=== PATIENT | female | born 1950 | race Caucasian/White ===

== ENCOUNTER → 2016-11-13 | Outpatient (CLI) | payer BC ==
[~2016-11-13] MED LIST: ERGO1CAP35 PO; ERGO500037 PO; HYDR-5688 PO; MULT-188 PO; MULTTAB58 PO; OMEG120013 PO; SIMV20TA2 PO
--- NOTE | 2016-11-13 15:00 | MAMMOGRAPHY REPORT ---
BILATERAL DIGITAL SCREENING MAMMOGRAM WITH CAD: 11/13/2016 CLINICAL HISTORY: Routine screening examination. TECHNIQUE: Bilateral CC and MLO views were obtained. Current study was also evaluated with a Comput er Aided Detection (CAD) system. COMPARISON: Comparison is made to exams dated: 11/09/2015 mammogram, 11/06/2014 mammogram, 06/12/2011 mammogram, 10/01/2013 mammogram, 07/24/2012 mammogram, and 06/03/2010 mammogram - [facility]. BREAST COMPOSITION: There are scattered areas of fibroglandular density in both breasts. FINDINGS: There are benign rim calcifications and rodlike secretory calcifications in both breasts. No suspicious mass, architectural distortion or cluster of microcalcifications is seen. IMPRESSION: ACR BI-RADS CATEGORY 2: BENIGN There is no mammographic evidence of malignancy. A 1 year screening mammogram is recommended. The p atient will receive written notification of the results. Approximately 10% of breast cancers are not detected with mammography. A negative mammographic repor t should not delay biopsy if a clinically suggestive mass is present. Carine Burk M.D. ay/:11/13/2016 09:36:08 Title 1 Tutor: Rea MOE(Kassy)(Shar), [facility] letter sent: Normal 1/2 BI-RADS Code: ACR BI-RADS Category 2: Benign
== END | disposition home or self-care (01) ==
LOC: C.MAMM 08:09
PROVIDERS: ATTEND Obstetrics & Gynecology
DX: Z12.31 Encounter for screening mammogram for malignant neoplasm of breast (principal)

== ENCOUNTER 2017-03-25 11:13 | Emergency (ER) | payer BC ==
[~2017-03-25] VITALS: Ht 157.5 cm; Wt 63.0 kg
[~2017-03-25 11:13] MED LIST changes: -ERGO500037 PO; -HYDR-5688 PO
[2017-03-25 11:16] VITALS: TEMP 36.9; Ht 157.5 cm; Wt 63.0 kg
[2017-03-25] MEDS ORDERED: ERGO500037 PO (11:36)
[2017-03-25] MEDS ORDERED: ACETAMINOPHEN 325 MG TAB PO STA (12:06)
--- NOTE | 2017-03-25 12:55 | DIAGNOSTIC IMAGING REPORT ---
LEFT WRIST 5 VIEWS CLINICAL HISTORY: Fall yesterday with left wrist pain. FINDINGS: 5 views of the left wrist are obtained. No prior studies are available for comparison at the time of dictation. The skeletal structures are osteopenic. There is no radiographic evidence of left wrist fracture. The Joint spaces of the wrist appear well-maintained. Soft tissue swelling is present around the wrist. IMPRESSION: Soft tissue swelling with no radiographic evidence of left wrist fracture. If there is strong clinical concern for occult fracture consider short-term radiographic follow-up. Electronically signed by: Francisco Orozco M.D. 03/25/2017 12:54 PM Dictated Date/Time: 03/25/2017 12:52 PM
--- NOTE | 2017-03-25 13:00 | DIAGNOSTIC IMAGING REPORT ---
SINGLE VIEW PELVIS CLINICAL HISTORY: Fall with left pelvic pain. FINDINGS: An AP pelvic radiograph is obtained. No prior studies are available for comparison at the time of dictation. The skeletal structures are osteopenic. There are acute left pubic ring fractures. Only minimal distraction is seen. No additional fracture is seen. The proximal femora appear intact. Mild arthritic change is noted in the hips. Mild sclerosis is seen in the sacroiliac joints and pubic symphysis. There is a nonobstructed abdominal bowel gas pattern. IMPRESSION: 1. Acute left pubic ring fractures. 2. No additional fracture is identified. 3. Osteopenia and degenerative change as above. Electronically signed by: Francisco Orozco M.D. 03/25/2017 12:58 PM Dictated Date/Time: 03/25/2017 12:57 PM
[2017-03-25] MEDS ORDERED: HYDR-5688 PO (13:20)
[2017-03-25 13:54] VITALS: BP 132/85; PULSE 74; O2SAT 95
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
== END 2017-03-25 13:55 | disposition home or self-care (01) ==
LOC: C.EDB 11:15 → C.EDD 13:55
DX: S32.592A Other specified fracture of left pubis, initial encounter for closed fracture (principal); S60.212A Contusion of left wrist, initial encounter; W03.XXXA Other fall on same level due to collision with another person, initial encounter; Y92.251 Museum as the place of occurrence of the external cause; S60.221A Contusion of right hand, initial encounter; S60.511A Abrasion of right hand, initial encounter; S70.12XA Contusion of left thigh, initial encounter; M19.90 Unspecified osteoarthritis, unspecified site; Z90.710 Acquired absence of both cervix and uterus

== ENCOUNTER → 2017-04-12 | Outpatient (CLI) | payer BC ==
[~2017-04-12] MED LIST changes: -ERGO1CAP35 PO; +ERGO500037 PO; +HYDR-5688 PO
== END | disposition home or self-care (01) ==
LOC: C.RDSM 16:15
PROVIDERS: ATTEND Orthopaedic Surgery Sports Medicine
DX: Z09 Encounter for follow-up examination after completed treatment for conditions other than malignant neoplasm (principal)

== ENCOUNTER → 2017-05-17 | Outpatient (CLI) | payer BC | END | disposition home or self-care (01) | LOC: C.RDSM 14:01 | PROVIDERS: ATTEND Orthopaedic Surgery Sports Medicine | DX: S32.599A Other specified fracture of unspecified pubis, initial encounter for closed fracture (principal); X58.XXXA Exposure to other specified factors, initial encounter ==

== ENCOUNTER → 2017-09-10 | Outpatient (CLI) | payer BC | END | disposition home or self-care (01) | LOC: C.MAMM 09:58 | PROVIDERS: ATTEND Internal Medicine | DX: M85.89 Other specified disorders of bone density and structure, multiple sites (principal); M85.851 Other specified disorders of bone density and structure, right thigh; M85.852 Other specified disorders of bone density and structure, left thigh; W19.XXXA Unspecified fall, initial encounter; Z87.81 Personal history of (healed) traumatic fracture ==

== ENCOUNTER → 2017-11-14 | Outpatient (CLI) | payer BC ==
[~2017-11-14] MED LIST changes: -HYDR-5688 PO
--- NOTE | 2017-11-14 15:41 | MAMMOGRAPHY REPORT ---
BILATERAL DIGITAL SCREENING MAMMOGRAM TOMOSYNTHESIS WITH CAD: 11/14/2017 CLINICAL HISTORY: Routine screening. Patient has no complaints. TECHNIQUE: Breast tomosynthesis in addition to standard 2D mammography was performed. Current study was also evaluated with a Computer Aided Detection (CAD) system. COMPARISON: Comparison is made to exams dated: 11/13/2016 mammogram, 11/09/2015 mammogram, 11/06/2014 m ammogram, 10/01/2013 mammogram, 07/24/2012 mammogram, and 06/12/2011 mammogram - [facility]. BREAST COMPOSITION: There are scattered areas of fibroglandular density in both breasts. FINDINGS: No suspicious masses, calcifications, or areas of architectural distortion are noted in ei ther breast. There has been no significant interval change compared to prior exams. Scattered bilater al benign-appearing calcifications are not significantly changed. IMPRESSION: ACR BI-RADS CATEGORY 2: BENIGN There is no mammographic evidence of malignancy. A 1 year screening mammogram is recommended. The pa tient will receive written notification of the results. Approximately 10% of breast cancers are not detected with mammography. A negative mammographic report should not delay biopsy if a clinically suggestive mass is present. Lindsay Hung M.D. /:11/14/2017 09:21:11 Conveyor Operator: Ninfa MESA)(M), [facility] letter sent: Normal 1/2 BI-RADS Code: ACR BI-RADS Category 2: Benign
== END | disposition home or self-care (01) ==
LOC: C.MAMM 08:55
PROVIDERS: ATTEND Obstetrics & Gynecology
DX: Z12.31 Encounter for screening mammogram for malignant neoplasm of breast (principal)

== ENCOUNTER → 2017-12-05 | Outpatient (CLI) | payer BC ==
[2017-12-05 10:12] LABS: ALBUMIN 3.7 gm/dl (3.4-5.0); ALT/SGPT 26 U/L (12-78); BLOOD UREA NITROGEN 18 mg/dl (7-18); CALCIUM 9.1 mg/dl (8.5-10.1); CARBON DIOXIDE 26 mmol/L (21-32); CHOLESTEROL 211 mg/dl (0-200); CREATININE 0.86 mg/dl (0.60-1.20); GLUCOSE 87 mg/dl (70-99); POTASSIUM 3.7 mmol/L (3.5-5.1); SODIUM 137 mmol/L (136-145)
[2017-12-05 10:23] LABS: ALKALINE PHOSPHATASE 99 U/L (45-117); AST/SGOT 21 U/L (15-37); LDL CHOLESTEROL CALCULATED 112 mg/dl; TOTAL PROTEIN 7.2 gm/dl (6.4-8.2)
== END | disposition home or self-care (01) ==
LOC: C.LAB1850 08:59
PROVIDERS: ATTEND Internal Medicine
DX: E78.00 Pure hypercholesterolemia, unspecified (principal); E55.9 Vitamin D deficiency, unspecified

== ENCOUNTER 2022-07-18 10:50 | Observation (INO) ==
--- NOTE | 2022-07-18 11:38 | Emergency Department Note ---
Impression & Plan Substernal chest pain, Exertional chest pain ED Provider Note Name: HUBER MILLER Age: 72 Sex: F Arrives Via: Walk-In Informant: Patient, ED Provider: Corbin Villanueva MD Chief Complaint: Chest pain Impression: As per impressions above Medical Decision Making: Pleasant 72-year-old female with a known history of CAD/calcifications though no previous heart catheterization arrives for evaluation of escalating exertional chest pressure over the last week or so. On arrival with no symptoms. EKG is without ischemia. Labs are unremarkable and initial troponin is normal. Chest x-ray looks good. She has no history nor findings consistent with PE. Symptoms and findings are not consistent with dissection either at this time. She is not septic appearing either. Given her history and the exertional component and especially the escalating symptoms I do feel that this may represent coronary cause. With normal troponin I do not think that starting heparin is indicated at this time. She is agreeable to trying aspirin which she was worried she may be allergic to. She was given 324 mg p.o. aspirin without further issue. Plan will be to bring her in for a full cardiac rule out and hospitalist was consulted for that. Prior Medical Record and Triage/Nursing Notes reviewed by Me Additional history obtained from chart Differentials:Cardiac ischemia, aortic dissection, pulmonary embolism, pneumothorax, pneumonia, pericarditis, myocarditis, esophageal rupture, GERD, cholecystitis, pancreatitis, musculoskeletal, as well as other pathologies. Vital Signs: reviewed and remarkable for no significant abnormalities Interventions: Aspirin 324 mg p.o. Labs:Reviewed and remarkable for normal troponin Imagin view chest x-ray as per radiologist no acute findings EKG:Indication chest pain as per my interpretation. Normal sinus rhythm at 67 bpm and a QTC of 418. There is no ectopy nor ischemia. When compared to EKG of September 23, 2021 there is no acute changes Cardiac/Tele Monitoring: Cardiac Monitoring: An Order was placed for continuous cardiac monitoring. The monitor shows a rate of 67 with a normal sinus rhythm. Consults:Dr Viktor CLOUD Hospitalist Plan: Disposition:Hospitalization Condition: Good History of Present Illness:72-year-old female arrives for evaluation of chest pain. Patient notes that she has no significant history of CAD or previous cardiac issues other than known hypertrophy of the left ventricle. She states that she has been feeling well up until about a week or 2 ago. She notes that on several occasions over the last week she has had significant crushing tightness of her chest and shortness of breath with heavy exertion primarily go ing up hills. With just general walking and general exercise she has no symptoms. She states symptoms resolved after she relaxes for a little while. This morning symptoms lasted about half hour or so during her morning walk up a hill. She took no medications prior to arrival. Rest makes better or exertion makes it worse. She denies any falls, trauma, injuries. She had no palpitation, nausea, vomiting, back pain, abdominal pain or other concerning signs or symptoms. No previous cardiac catheterization. She had an echo previously and was seen by cardiology at that time. Patient states she has no symptoms at this time. ROS: See above HPI for pertinent positives & negatives. A total of 10 systems reviewed and were otherwise negative. Past Medical History:HERNANDEZ, coronary artery calcifications, dyslipidemia, carotid atherosclerosis, left ventricular hypertrophy Past Surgical History:See Below Family History:See below but will note significant family history of CAD in both mother, father, brother. Social History:See Below Home Medications:See Below Allergies:See Below Vitals:Blood Pressure: 153/67, Pulse 68, RR 18, T 36.5C, O2 98% on RA Physical Exam: GENERAL: Patient is well appearing and in no acute distress. EYES: No scleral icterus, unremarkable pupils. ENT: Mucous membranes moist, no nasal congestion. NECK: No masses appreciated, nomeningismus, trachea is midline. RESPIRATORY: No dyspnea. Clear to auscultation and equal bilaterally. No wheeze, no rhonchi. CARDIOVASCULAR: Regular rate and rhythm.No murmurs, rubs, gallops appreciated. GASTROINTESTINAL: Abdomen soft, non-tender, no peritonitis.Bowel sounds positive.No masses appreciated. BACK: No midline tenderness, no CVA tenderness EXTREMITIES: Normal motion all extremities, no cyanosis, no edema. NEUROLOGIC: Alert and oriented, no acute motor or sensory deficits, no focal weakness, cranial nerves grossly intact. SKIN: No rash, no jaundice, no diaphoresis. 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 Left hip pain Left ventricular hypertrophy Osteopenia Prolapse of vaginal park Vaginal pessary present Vitamin D deficiency disease Surgical History H/O hysterectomy for benign disease History of appendectomy History of colonoscopy History of gynecologic surgery posterior colporrhaphy History of pituitary surgery benign tumor removed History of right breast biopsy benign, 2020, chronic inflammation, not radial scar History of wisdom tooth extraction S/P hysterectomy vaginal with USLS S/P tonsillectomy and adenoidectomy Family History Mother Family hx of colon cancer Hypercholesterolemia Colorectal cancer Myocardial infarction Father Throat cancer Family history of esophageal cancer Brother Hx of CABG Myocardial infarction Grandmother (Maternal) Stroke Grandmother (Paternal) Stroke Other Cancer No family history of adverse response to anesthesia Denies family history of Ovarian cancer Prostate cancer Breast cancer Social History Smoking Status: Never smoker Second Hand Exposure: No (parents smoked); Hx Alcohol Use: No Hx Substance Use: No Preferred Language: Hungarian Communication Ability: Effective Visual Impairment: No Limitations Hearing Ability: Normal Clinical Associate Required: No Beliefs That Will Affect Care: None marital status: Current Living Situation: Spouse How many Children do You have: 2 How many Children do You have Comment: 2 live births and 1 miscarriage Feels Safe at Home: Yes Childhood Exposure to Second-Hand Smoke: Yes (both parants) caffeine: No Dental Care, Regularly: Yes Physical Activity Frequency: Daily Physical Activity Frequency Comment: walking Seatbelt Use: always Sunscreen Use: Yes (sometimes) Assistive Devices: Glasses Allergies Allergies Allergy/AdvReac Type Severity Reaction Status Date / Time ibuprofen Allergy Intermediate rash/hives Verified 06/28/22 15:31 Iodinated Contrast Media Allergy Intermediate extreme Verified 06/28/22 15:31 headache/vomiting lasts for days Penicillins Allergy Intermediate swelling Verified 06/28/22 15:31 in face/neck, "sunburn" red HAIR DYE Allergy Mild ITCHINESS Uncoded 06/28/22 15:31 with scalp Home Meds Home Medications Medication Instructions Recorded Confirmed krill 1,000 mg-omega-3 170 mg-dha 1 cap PO QPM 01/02/20 07/18/22 50 mg-epa 80 [id number] capsule (krill oil) lutein 25 mg-zeaxanthin 5 mg 1 cap PO QAM 01/02/20 07/18/22 capsule (Ocuvite Lutein) multivitamin 1 tab PO QAM 01/02/20 07/18/22 cholecalciferol (vitamin D3) 25 2,000 unit PO QAM 08/27/20 07/18/22 mcg (1,000 unit) tablet (Vitamin D3) Previous Rx's Medication Instructions Recorded atorvastatin 40 mg tablet 40 mg PO DAILY #90 tabs 08/03/21 ondansetron 4 mg disintegrating 4 mg PO Q8H PRN nausea and 09/23/21 tablet vomiting #30 tabs Results & Data (ED) Vital Signs Vital Signs - 24 hr 07/18/22 10:56 07/18/22 11:07 07/18/22 11:30 Temperature 36.5 C Temperature Source Oral Pulse Rate 68 61 Pulse Rate from SpO2 Sensor 60 Respiratory Rate 18 12 Respiratory Effort / Characteristics Non-Labored Spontaneous Respiratory Depth Normal Respiratory Pattern Regular Blood Pressure 153/67 H 166/66 H Blood Pressure Mean 95 99 Blood Pressure Position Sitting Pulse Oximetry 98 98 Oxygen Delivery Method Room Air Sepsis Recent Fever Within 48 Hours No Sepsis New/Unexplained Change in Mental Status N/A Sepsis Action Taken by Nursing No Action Required 07/18/22 11:30 07/18/22 12:00 07/18/22 12:00 Temperature Temperature Source Pulse Rate 67 56 L Pulse Rate from SpO2 Sensor 65 57 L Respiratory Rate 14 15 Respiratory Effort / Characteristics Respiratory Depth Respiratory Pattern Blood Pressure 137/60 Blood Pressure Mean 85 Blood Pressure Position Pulse Oximetry 98 97 Oxygen Delivery Method Sepsis Recent Fever Within 48 Hours Sepsis New/Unexplained Change in Mental Status Sepsis Action Taken by Nursing 07/18/22 12:30 07/18/22 12:30 07/18/22 13:00 Temperature Temperature Source Pulse Rate 58 L Pulse Rate from SpO2 Sensor 59 L Respiratory Rate 14 Respiratory Effort / Characteristics Respiratory Depth Respiratory Pattern Blood Pressure 150/69 H 160/72 H Blood Pressure Mean 96 101 Blood Pressure Position Pulse Oximetry 99 Oxygen Delivery Method Sepsis Recent Fever Within 48 Hours Sepsis New/Unexplained Change in Mental Status Sepsis Action Taken by Nursing 07/18/22 13:00 07/18/22 13:38 Temperature Temperature Source Pulse Rate 57 L 61 Pulse Rate from SpO2 Sensor 58 L Respiratory Rate 12 17 Respiratory Effort / Characteristics Respiratory Depth Respiratory Pattern Blood Pressure Blood Pressure Mean Blood Pressure Position Pulse Oximetry 99 Oxygen Delivery Method Sepsis Recent Fever Within 48 Hours Sepsis New/Unexplained Change in Mental Status Sepsis Action Taken by Nursing Laboratory Data Result diagrams: 07/18/22 11:10 07/18/22 11:10 Lab Results 07/18/22 07/18/22 07/18/22 Range/Units 11:10 11:10 11:10 WBC 5.97 (4.8-10.8) K/ul RBC 4.44 (3.93-5.22) M/uL Hgb 13.6 (12.0-16.0) g/dl Hct 40.6 (34.1-44.9) % MCV 91.4 (80.0-100.0) fL MCH 30.6 (25.0-34.0) pg MCHC 33.5 (32.0-36.0) g/dL RDW Std Deviation 46.6 H (36.4-46.3) fL RDW Coeff of Jared 13.7 (11.5-14.5) % Plt Count 218 (130-400) K/uL MPV 10.1 (9.4-12.3) fL Immature Gran % (Auto) 0.2 % Neut % (Auto) 60.1 % Lymph % (Auto) 29.1 % [place] % (Auto) 8.4 % Eos % (Auto) 1.7 % Baso % (Auto) 0.5 % Neut # (Auto) 3.59 (1.4-6.5) K/uL Lymph # (Auto) 1.74 (1.2-3.4) K/uL [place] # (Auto) 0.50 (0.24-0.82) K/uL Eos # (Auto) 0.10 (0-0.50) K/uL Baso # (Auto) 0.03 (0-0.2) K/uL Immature Gran # (Auto) 0.01 (0.00-0.02) K/uL PT 10.5 (9.0-12.0) Seconds INR 1.0 (0.9-1.1) APTT 21.9 (21.0-31.0) Seconds PTT Ratio 0.8 D-Dimer 220 (0-500) ug/L FEU Sodium 140 (136-145) mmol/L Potassium 3.8 (3.5-5.1) mmol/L Chloride 106 (98-107) mmol/L Carbon Dioxide 27 (21-32) mmol/L Anion Gap 7 (3-11) BUN 22 (6-23) mg/dl Creatinine 0.71 (0.6-1.2) mg/dl Est Cr Clr Drug Dosing 53.3 ml/min Est GFR ( Amer) 97.3 ml/min Est GFR (Non-Af Amer) 83.9 ml/min BUN/Creatinine Ratio 31.0 H (10-20) Glucose 91 (70-99(Fasting)) mg/dl Calcium 9.4 (8.5-10.1) mg/dl Troponin I High Sens 4.4 (0-14) pg/ml SARS-CoV-2, RNA, NAAT (NEGATIVE) 07/18/22 Range/Units 12:00 WBC (4.8-10.8) K/ul RBC (3.93-5.22) M/uL Hgb (12.0-16.0) g/dl Hct (34.1-44.9) % MCV (80.0-100.0) fL MCH (25.0-34.0) pg MCHC (32.0-36.0) g/dL RDW Std Deviation (36.4-46.3) fL RDW Coeff of Jared (11.5-14.5) % Plt Count (130-400) K/uL MPV (9.4-12.3) fL Immature Gran % (Auto) % Neut % (Auto) % Lymph % (Auto) % [place] % (Auto) % Eos % (Auto) % Baso % (Auto) % Neut # (Auto) (1.4-6.5) K/uL Lymph # (Auto) (1.2-3.4) K/uL [place] # (Auto) (0.24-0.82) K/uL Eos # (Auto) (0-0.50) K/uL Baso # (Auto) (0-0.2) K/uL Immature Gran # (Auto) (0.00-0.02) K/uL PT (9.0-12.0) Seconds INR (0.9-1.1) APTT (21.0-31.0) Seconds PTT Ratio D-Dimer (0-500) ug/L FEU Sodium (136-145) mmol/L Potassium (3.5-5.1) mmol/L Chloride (98-107) mmol/L Carbon Dioxide (21-32) mmol/L Anion Gap (3-11) BUN (6-23) mg/dl Creatinine (0.6-1.2) mg/dl Est Cr Clr Drug Dosing ml/min Est GFR ( Amer) ml/min Est GFR (Non-Af Amer) ml/min BUN/Creatinine Ratio (10-20) Glucose (70-99(Fasting)) mg/dl Calcium (8.5-10.1) mg/dl Troponin I High Sens (0-14) pg/ml SARS-CoV-2, RNA, NAAT NEGATIVE (NEGATIVE) Administered Medications Discontinued Medications Aspirin (Aspirin 81 Mg Chew) 324 mg PO NOW STA Stop: 07/18/22 13:30 Last Admin: 07/18/22 13:36 Dose: 324 mg Documented By: ERWIN Imaging Data Radiologist's Impression: Chest X-Ray 07/18/22 11:35 XR chest 1V portable CLINICAL HISTORY: exertional chest pain TECHNIQUE: Single frontal radiograph of the chest was obtained. Comparison: Comparison is made to rib series 10/18/2021 FINDINGS: No lines and tubes are seen. The cardiomediastinal silhouette is normal. The lungs are clear. No evidence of pleural effusion or pneumothorax. IMPRESSION: No acute chest disease. ACT 112: Negative or not required by law. Electronically signed by: Pasha Parisi M.D. 07/18/2022 11:52 AM Discharge Plan Visit Data Chief Complaint: Chest Pain Stated Complaint: chest pain, ED Provider: Corbin Villanueva Discharge Problem: Substernal chest pain, Exertional chest pain Patient Disposition: Admitted As Inpatient Discharge Instructions Interventions: ED Discharge Assessment Last Done: 07/18/22 14:43
--- NOTE | 2022-07-18 11:53 | XRay Report ---
XR chest 1V portable CLINICAL HISTORY: exertional chest pain TECHNIQUE: Single frontal radiograph of the chest was obtained. Comparison: Comparison is made to rib series 10/18/2021 FINDINGS: No lines and tubes are seen. The cardiomediastinal silhouette is normal. The lungs are clear. No evid ence of pleural effusion or pneumothorax. IMPRESSION: No acute chest disease. ACT 112: Negative or not required by law. Electronically signed by: Pasha Parisi M.D. 07/18/2022 11:52 AM
[2022-07-18 11:57] LABS: Basophils # (auto) 0.03 K/uL (0-0.2); Basophils % (auto) 0.5 %; Eosinophils % (auto) 1.7 %; Hematocrit (blood only) 40.6 % (34.1-44.9); Hemoglobin 13.6 g/dl (12.0-16.0); Immature Granulocytes # (auto) 0.01 K/uL (0.00-0.02); Immature Granulocytes % (auto) 0.2 %; Lymphocytes # (auto) 1.74 K/uL (1.2-3.4); Lymphocytes % (auto) 29.1 %; Mean Corpuscular Hemoglobin 30.6 pg (25.0-34.0); Mean Corpuscular Hgb Conc 33.5 g/dL (32.0-36.0); Mean Corpuscular Volume 91.4 fL (80.0-100.0); Mean Platelet Volume 10.1 fL (9.4-12.3); Monocytes % (auto) 8.4 %; Neutrophils # (auto) 3.59 K/uL (1.4-6.5); Neutrophils % (auto) 60.1 %; Platelet Count 218 K/uL (130-400); RDW Coefficient of Variation 13.7 % (11.5-14.5); RDW Standard Deviation 46.6 fL (36.4-46.3); Red Blood Count 4.44 M/uL (3.93-5.22); White Blood Count 5.97 K/ul (4.8-10.8)
[2022-07-18 12:20] LABS: D Dimer 220 ug/L FEU (0-500); Partial Thromboplastin Ratio 0.8; Partial Thromboplastin Time 21.9 Seconds (21.0-31.0); Prothrombin Time 10.5 Seconds (9.0-12.0)
[2022-07-18 12:38] LABS: Troponin I High Sensitivity 4.4 pg/ml (0-14)
[2022-07-18 12:43] LABS: Calcium 9.4 mg/dl (8.5-10.1); Creatinine Clr Calc Pharmacy 53.3 ml/min; Est GFR (African American) 97.3 ml/min; Est GFR (Non-African American) 83.9 ml/min; Potassium 3.8 mmol/L (3.5-5.1)
[2022-07-18] MEDS ORDERED: ASPIRIN 81 MG CHEW PO STA (13:29)
--- NOTE | 2022-07-18 14:06 | History & Physical Report ---
Date of Service July 18, 2022 Assessment & Plan (1) Chest pain: Plan: - Temporary left-sided chest pressure this morning while walking [place] a hill in her neighborhood, with 34 prior incidences over the past 2 weeks that occurred with activity. Associated SOB. Currently chest pain free. - Initial trop 4.4, trend these as well as EKGs. - Echo ordered. - Cardiology consulted, appreciate their recommendations. - D dimer wnl, no unilateral leg swelling or pain, no history of VTE of thrombophilia. -continue ASA, statin, prn NTG (2) Fatty liver disease, nonalcoholic: Plan: - Chronic, stable. NO acute needs. - LFTs wnl. - Continue to avoid alcohol encourage weight loss. - Follows with GI, last seen in March. (3) Hypercholesterolemia: Plan: - Continue statin. - Lipids 01/10: TRG 235, cholesterol 185, LDL 84, VLDL 47, HDl 54. (4) Carotid atherosclerosis: Plan: - 50% stenosis b/l, not on aspirin due to allergic reaction to ibuprofen 15 years ago--hives, palms/soles became itchy. - Tolerated full dose ASA in ED without side effects. (5) Vitamin D deficiency disease: Plan: - Continue Vit D supplementation. Plan - Obs to med/tele. - SCDs for VTE ppx. - Full Code. History of Present Illness Chief Complaint: chest pain this morning Primary Care Provider: Fuad Lovell MD Verónica Cassidy is a 72 y/o female with past medical history significant for hypercholesterolemia, osteopenia, insufficiency, carotid artery stenosis, and fatty liver disease who presents today with chest pain. Patient states she and her are doing the usual walk around the neighborhood this morning which includes hills. She noticed that she started to move up the hill that she got a left-sided crushing chest pressure. Upon resting and returning home, the pain subsided prior to evaluation, however she did call her PCP who advised her to present to the ED for further evaluation. She notes that she has difficult time catching her breath when his chest pain is present, otherwise has not felt short of breath, notes palpitations, dizziness, lightheadedness, or radiation of pain to back/shoulder/neck/arm/jaw. She has had this chest pain approximately 4 times over the last 2 weeks, it only comes on when she goes up hills. As stated, today patient returned home and her chest pain did alleviate prior to presentation, however on previous occasion she had continued exercising through the pain but notes did become more severe as she continued up the hill. Currently she reports pain is 0/10. She received full dose of aspirin in the ED. Patient was previously by cardiology in 1 year ago due to episodes of nocturnal dyspnea. An EKG noted sinus rhythm with left axis poor R wave progression, revealed atelectasis. She underwent chest CT which showed moderate coronary calcifications as well as calcifications of aorta. An echo was done in July which noted normal left ventricular systolic function with an EF of 60-65%. There is mild LVH with evidence of diastolic dysfunction but no valvular pathology and unchanged from a study performed August 2016. She is also had an intermittent LBBB since August 2016 but a dobutamine stress echo at that time did not show evidence of ischemia. In ED, her vital signs are within normal limits and stable. Labs are all unremarkable, troponin 4.4. CXR unremarkable. EKG without ST segment or T wave changes. Allergies Allergy/AdvReac Type Severity Reaction Status Date / Time ibuprofen Allergy Intermediate rash/hives Verified 06/28/22 15:31 Iodinated Contrast Media Allergy Intermediate extreme Verified 06/28/22 15:31 headache/vomiting lasts for days Penicillins Allergy Intermediate swelling Verified 06/28/22 15:31 in face/neck, "sunburn" red HAIR DYE Allergy Mild ITCHINESS Uncoded 06/28/22 15:31 with scalp Home Medications Medication Instructions Recorded Confirmed Type krill 1,000 mg-omega-3 170 mg-dha 1 cap PO QPM 01/02/20 07/18/22 History 50 mg-epa 80 on-uyoxrc-fbsve capsule (krill oil) lutein 25 mg-zeaxanthin 5 mg 1 cap PO QAM 01/02/20 07/18/22 History capsule (Ocuvite Lutein) multivitamin 1 tab PO QAM 01/02/20 07/18/22 History cholecalciferol (vitamin D3) 25 2,000 unit PO QAM 08/27/20 07/18/22 History mcg (1,000 unit) tablet (Vitamin D3) atorvastatin 40 mg tablet 40 mg PO DAILY #90 tabs 08/03/21 07/18/22 Rx ondansetron 4 mg disintegrating 4 mg PO Q8H PRN nausea and 09/23/21 07/18/22 Rx tablet vomiting #30 tabs Past Med/Surg History Medical History Carotid atherosclerosis Contusion of left wrist, initial encounter Degenerative joint disease of thoracic spine EKG, abnormal Fracture of left inferior pubic ramus Hepatomegaly History of fracture of pelvis Hyperlipidemia Irregular heart beats at times, 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 Left hip pain Left ventricular hypertrophy Osteopenia Prolapse of vaginal park Vaginal pessary present Vitamin D deficiency disease Surgical History H/O hysterectomy for benign disease History of appendectomy History of colonoscopy History of gynecologic surgery posterior colporrhaphy History of pituitary surgery benign tumor removed History of right breast biopsy benign, 2020, chronic inflammation, not radial scar History of wisdom tooth extraction S/P hysterectomy vaginal with USLS S/P tonsillectomy and adenoidectomy Family History Mother Family hx of colon cancer Hypercholesterolemia Colorectal cancer Myocardial infarction Father Throat cancer Family history of esophageal cancer Brother Hx of CABG Myocardial infarction Grandmother (Maternal) Stroke Grandmother (Paternal) Stroke Other Cancer No family history of adverse response to anesthesia Denies family history of Ovarian cancer Prostate cancer Breast cancer Social History Smoking Status: Never smoker Second Hand Exposure: No (parents smoked); Hx Alcohol Use: No Hx Substance Use: No Preferred Language: Pakistani Communication Ability: Effective Visual Impairment: No Limitations Hearing Ability: Normal 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 Beliefs That Will Affect Care: None marital status: Current Living Situation: Spouse How many Children do You have: 2 How many Children do You have Comment: 2 live births and 1 miscarriage Feels Safe at Home: Yes Childhood Exposure to Second-Hand Smoke: Yes (both parants) caffeine: No Dental Care, Regularly: Yes Physical Activity Frequency: Daily Physical Activity Frequency Comment: walking Seatbelt Use: always Sunscreen Use: Yes (sometimes) Assistive Devices: Glasses Review of Systems Review of Systems: Constitutional: No fever/chills, weakness, fatigue, myalgias, anorexia, night sweats Eyes: No diplopia, no worsening or blurred vision ENT: normal hearing, no trouble swallowing Respiratory: Temporary shortness of breath associated with chest pain that is relieved with chest pain alleviation; no cough, sputum, dyspnea at rest or on exertion Cardiovascular: For episodes of exertional chest pain while walking at an incline over the past 2 weeks; no radiation of pain or palpitations Abdomen: No pain, nausea, vomiting, diarrhea or constipation : Denies dysuria, hematuria, increased urgency/frequency, urinary retention Musculoskeletal: No joint pain, calf pain, swelling Neurologic: No weakness, numbness/tingling, or balance problems Psychiatric: No anxiety or depression Skin: No rash or itch Physical Exam Physical Exam: General: awake, alert, no apparent distress Head: Normocephalic, atraumatic ENT: PERRL, EOMI, no pharyngeal exudate, mucous membranes moist Chest: Clear to auscultation, on room air, no adventitious breath sounds Cardiac: Regular rate and rhythm, no murmur, no JVD, normal peripheral pulses, good capillary refill Abdominal: NABS x 4 quadrants, soft, nontender to palpation, no rebound, guarding or tenderness Extremities: Normal inspection, no peripheral edema or erythema, calfs nontender to palpation Psych: Normal mood and affect Neuro: AAO x 3, strength intact bilaterally and rated 5/5, no motor deficits, speech is clear, no peripheral sensory deficits Skin: no rash or erythema Results & Data Results & Data ([facility]) Vital Signs (Past 12 Hours) Vital Signs Temp Pulse Resp BP Pulse Ox O2 Del Method 07/18/22 13:38 61 17 07/18/22 13:00 57 L 12 99 07/18/22 13:00 160/72 H 07/18/22 12:30 58 L 14 99 07/18/22 12:30 150/69 H 07/18/22 12:00 56 L 15 97 07/18/22 12:00 137/60 07/18/22 11:30 67 14 98 07/18/22 11:30 166/66 H 07/18/22 11:07 61 12 98 07/18/22 10:56 36.5 C 68 18 153/67 H 98 Room Air Laboratory Results Abnormal lab results 07/18/22 07/18/22 Range/Units 11:10 11:10 RDW Std Deviation 46.6 H (36.4-46.3) fL BUN/Creatinine Ratio 31.0 H (10-20) Diagnostic Findings Chest X-Ray 07/18/22 11:35 XR chest 1V portable CLINICAL HISTORY: exertional chest pain TECHNIQUE: Single frontal radiograph of the chest was obtained. Comparison: Comparison is made to rib series 10/18/2021 FINDINGS: No lines and tubes are seen. The cardiomediastinal silhouette is normal. The lungs are clear. No evidence of pleural effusion or pneumothorax. IMPRESSION: No acute chest disease. ACT 112: Negative or not required by law. Electronically signed by: Pasha Parisi M.D. 07/18/2022 11:52 AM ECG Additional Comments: Normal sinus rhythm Possible Left atrial enlargement Left axis deviation Low voltage QRS Septal infarct (cited on or before 23-SEP-2021) Abnormal ECG When compared with ECG of 23-SEP-2021 12:55, Criteria for Inferior infarct are no longer Present Questionable change in initial forces of Anteroseptal leads. Code Status & VTE Plan Code Status Full Code. Supervising Physician Co-Signing Physician Notes PA Supervision Note: I personally saw and examined the patient. I verified all daily points and agree with BORIS Gregg with the following exceptions and/or additions: S-Pt presents with typical angina with exerting herself up hills on her usual walks off and on the last few weeks that is resolved with rest. Associated with SOB, no nausea. Trops and ECGs normal in ER, labs otherwise normal, vitals stable. Pt with known coronary artery calcifications and hyperlipidemia on statin therapy. History and ROS reviewed as above O- Vitals reviewed Gen: [AAOx3, NAD] HEENT: [anicteric sclerae, EOMI] CV: [RRR no mgr nl S1S2] Pulm: [CTAB no wcr] Abd: [+BS soft NT ND no masses or hernias] Ext: [no edema, 2+ DP pulses] Skin: [no rashes, warm/dry] Neuro: [full strength throughout] Labs, Rads, and ECG reviewed A/P-72 yo female here with unstable angina. Agree with Cardio recommendation for cath--> pt has discussed this with her and is now agreeable to proceed with cath. make npo after midnight trend trops, get ECHO. start ASA, continue statin, more meds to add on based on cath results lipids nad A1C 6 months ago good PG Care Time/CCT Total # of Minutes Spent Total Time Spent with Patient: Total time spent is greater than 50% in coordination of care (as documented) at patient's floor/unit and/or counseling patient: Coding Level of Care Code INT OBSERVATION CARE 70M LVL 3 Diagnoses Chest pain R07.9 Fatty liver disease, nonalcoholic K76.0 Hypercholesterolemia E78.00 Carotid atherosclerosis I65.29 Vitamin D deficiency disease E55.9
[2022-07-18] MEDS ORDERED: POLYETHYLENE (MIRALAX) 17 GM PACK PO PRN (14:55)
[2022-07-18] MEDS ORDERED: MoRPHine SULFATE 2 MG/ML CARP IV PRN (14:55)
[2022-07-18] MEDS ORDERED: NITROGLYCERIN SL 0.4 MG/TAB TAB SL PRN (14:55)
[2022-07-18] MEDS ORDERED: ACETAMINOPHEN 325 MG TAB PO PRN (14:55)
[2022-07-18] MEDS ORDERED: ONDANSETRON INJ 2 MG/ML 2 ML VIAL IV PRN (14:55)
--- NOTE | 2022-07-18 18:18 | Cardiology Consultation ---
Date of Consultation July 18, 2022 Assessment & Plan (1) Chest pain: (2) Coronary artery calcification: (3) Elevated BP without diagnosis of hypertension: Plan ASSESSMENT/PLAN: 1. Exertional chest pain: Symptoms concerning for angina however 30 minutes of chest discomfort with negative high sensitivity troponin. Initial ECG unremarkable. Given new onset of symptoms, with reported mild atherosclerotic disease involving carotid arteries, documented coronary artery calcifications, history of dyslipidemia, ischemic evaluation is recommended. We discussed options such as noninvasive versus invasive. Has a history of left bundle- branch block per records however no left bundle-branch block currently. Could consider exercise stress echo to reproduce her symptoms with stress echo imaging. Given presentation however, suggested cardiac catheterization (risks and benefits were discussed with her in detail). She was made aware that CT surgery is not available at this facility. Prior to discussing potential risk, she expressed that she is not overly fond of pursuing cath. After discussing options, she would like to further think about her options, discuss with her later this evening, and also discuss with her primary senior supply chain analyst, Dr. Constantino tomorrow. She was asked to notify nursing staff if she should develop chest discomfort. In the meantime, recommend aspirin 81 mg daily as tolerated (she tolerated aspirin today). If blood pressure does not improve, would recommend treatment. Repeat ECG. 2. Coronary artery calcification: Risk factor modification. Continue high- intensity statin therapy. Consider aspirin 81 mg daily if tolerated. 3. Elevated blood pressure without formal diagnosis of hypertension. Blood pressure has been mostly elevated here. If blood pressure remains elevated, would recommend treatment as appropriate. 4. Disposition: NPO after midnight for ischemic evaluation tomorrow. She will discuss further with her primary senior supply chain analyst, Dr. Constantino, tomorrow. Patient care communicated with primary hospitalist team, Tanya Gregg. Highly complex medical issues for which cardiac catheterization was considered. Thank you for allowing me to participate in the care of your patient. Please call for any other questions or concerns. Sincerely, Chapincito Salinas M.D. History of Present Illness Reason for Consultation: Chest pain Requesting Physician: Brooke Hoang MD Attending Physician: Brooke Hoang MD History of Present Illness Mrs. Cassidy is a very pleasant 72-year-old female with a history significant for dyslipidemia, coronary artery calcifications, and fatty liver. She has a reported IV dye allergy of nausea and vomiting (~40 or more years ago). Her primary senior supply chain analyst is Dr. Constantino. She was admitted on 07/18/2022 due to exertional chest pain. Approximately 2 weeks ago, she noted exertional chest discomfort while walking a Hill. This is a usual activity for her and she previously had not been experiencing chest pain. The chest discomfort was described as a sq ueeze/tightness that was felt throughout her entire chest. There was no other radiation. She noted mild shortness of breath but no diaphoresis. Symptoms improved/resolve with rest, but lasted for approximately 30 minutes. Since then, approximately 10 days ago and then 5 days ago she had other episodes, once again while walking up a. Her last episode was today at approximately 9:00 a.m.. Her symptoms are not worsening since the onset 2 weeks ago. She was chest pain-free when she presented to the emergency department and has remained chest pain-free here. She denies any rest symptoms. She denies orthopnea, syncope, near-syncope, edema, or bleeding. She has occasional palpitations which are chronic and were not associated with her chest discomfort According to records, she has a history of transient left bundle branch block and underwent dobutamine stress echo in approximately 2015 which was reportedly negative for ischemia. She has not had a cardiac catheterization. Review of systems: As above. Review of systems otherwise negative/unremarkable. Family history: Brother had MS at approximately 68 years. Mother had MS in her 80s. Father had some heart condition. Social history: She denies tobacco, alcohol, or drug abuse. She lives at home with her . They have 1 son who lives locally with 2 grandsons. She has a daughter in [place] with a granddaughter and grandson. She was unaccompanied in her hospital room. Allergies Allergy/AdvReac Type Severity Reaction Status Date / Time ibuprofen Allergy Intermediate rash/hives Verified 06/28/22 15:31 Iodinated Contrast Media Allergy Intermediate extreme Verified 06/28/22 15:31 headache/vomiting lasts for days Penicillins Allergy Intermediate swelling Verified 06/28/22 15:31 in face/neck, "sunburn" red HAIR DYE Allergy Mild ITCHINESS Uncoded 06/28/22 15:31 with scalp Home Medications Medication Instructions Recorded Confirmed Type krill 1,000 mg-omega-3 170 mg-dha 1 cap PO QPM 01/02/20 07/18/22 History 50 mg-epa 80 tf-keltux-fjrwn capsule (krill oil) lutein 25 mg-zeaxanthin 5 mg 1 cap PO QAM 01/02/20 07/18/22 History capsule (Ocuvite Lutein) multivitamin 1 tab PO QAM 01/02/20 07/18/22 History cholecalciferol (vitamin D3) 25 2,000 unit PO QAM 08/27/20 07/18/22 History mcg (1,000 unit) tablet (Vitamin D3) atorvastatin 40 mg tablet 40 mg PO DAILY #90 tabs 08/03/21 07/18/22 Rx ondansetron 4 mg disintegrating 4 mg PO Q8H PRN nausea and 09/23/21 07/18/22 Rx tablet vomiting #30 tabs Patient History Medical History Carotid atherosclerosis Contusion of left wrist, initial encounter Degenerative joint disease of thoracic spine EKG, abnormal Fracture of left inferior pubic ramus Hepatomegaly History of fracture of pelvis Hyperlipidemia Irregular heart beats at times, no senior supply chain analyst Left hip pain Left ventricular hypertrophy Osteopenia Prolapse of vaginal park Vaginal pessary present Vitamin D deficiency disease Surgical History H/O hysterectomy for benign disease History of appendectomy History of colonoscopy History of gynecologic surgery posterior colporrhaphy History of pituitary surgery benign tumor removed History of right breast biopsy benign, 2020, chronic inflammation, not radial scar History of wisdom tooth extraction S/P hysterectomy vaginal with USLS S/P tonsillectomy and adenoidectomy Family History Mother Family hx of colon cancer Hypercholesterolemia Colorectal cancer Myocardial infarction Father Throat cancer Family history of esophageal cancer Brother Hx of CABG Myocardial infarction Grandmother (Maternal) Stroke Grandmother (Paternal) Stroke Other Cancer No family history of adverse response to anesthesia Denies family history of Ovarian cancer Prostate cancer Breast cancer Social History Smoking Status: Never smoker Second Hand Exposure: No (parents smoked); Hx Alcohol Use: No Hx Substance Use: No Preferred Language: Ukrainian Communication Ability: Effective Visual Impairment: No Limitations Hearing Ability: Normal 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 Alert and oriented. HEENT: Anicteric sclera. Neck: No JVD. No bruits. Normal carotid upstrokes bilaterally. Cardiac: PMI was nondisplaced. No ventricular heave. Regular. Normal S1-S2. No murmurs, rubs, or gallops. Pulmonary: Clear to auscultation bilaterally without wheezes, rales, or rhonchi. Abdomen: Soft, nontender, nondistended, with normoactive bowel sounds. No bruits noted. Extremities: 2+ radial pulses bilaterally. 2+ posterior tibialis pulses bilaterally. No edema or cyanosis. Psychiatric: Affect appears appropriate. Chest: Nontender to palpation. Results & Data ([facility]) Vital Signs (Past 12 Hours) Vital Signs Temp Pulse Pulse Resp BP BP Pulse Ox 07/18/22 16:23 61 07/18/22 15:19 07/18/22 14:57 36.8 C 62 16 163/71 H 98 07/18/22 14:43 60 17 162/87 H 99 07/18/22 13:38 61 17 07/18/22 13:00 57 L 12 99 07/18/22 13:00 160/72 H 07/18/22 12:30 58 L 14 99 07/18/22 12:30 150/69 H 07/18/22 12:00 56 L 15 97 07/18/22 12:00 137/60 07/18/22 11:30 67 14 98 07/18/22 11:30 166/66 H 07/18/22 11:07 61 12 98 07/18/22 10:56 36.5 C 68 18 153/67 H 98 O2 Del Method 07/18/22 16:23 07/18/22 15:19 Room Air 07/18/22 14:57 Room Air 07/18/22 14:43 Room Air 07/18/22 13:38 07/18/22 13:00 07/18/22 13:00 07/18/22 12:30 07/18/22 12:30 07/18/22 12:00 07/18/22 12:00 07/18/22 11:30 07/18/22 11:30 07/18/22 11:07 07/18/22 10:56 Room Air Laboratory Results Laboratory Results - last 24 hr 07/18/22 07/18/22 07/18/22 11:10 11:10 11:10 WBC 5.97 RBC 4.44 Hgb 13.6 Hct 40.6 MCV 91.4 MCH 30.6 MCHC 33.5 RDW Std Deviation 46.6 H RDW Coeff of Jared 13.7 Plt Count 218 MPV 10.1 Immature Gran % (Auto) 0.2 Neut % (Auto) 60.1 Lymph % (Auto) 29.1 Lyman % (Auto) 8.4 Eos % (Auto) 1.7 Baso % (Auto) 0.5 Neut # (Auto) 3.59 Lymph # (Auto) 1.74 Lyman # (Auto) 0.50 Eos # (Auto) 0.10 Baso # (Auto) 0.03 Immature Gran # (Auto) 0.01 PT 10.5 INR 1.0 APTT 21.9 PTT Ratio 0.8 D-Dimer 220 Sodium 140 Potassium 3.8 Chloride 106 Carbon Dioxide 27 Anion Gap 7 BUN 22 Creatinine 0.71 Est Cr Clr Drug Dosing 53.3 Est GFR ( Amer) 97.3 Est GFR (Non-Af Amer) 83.9 BUN/Creatinine Ratio 31.0 H Glucose 91 Calcium 9.4 Troponin I High Sens 4.4 Hepatitis C Ab (EIA) Hep C Ab Signal/Cutoff SARS-CoV-2, RNA, NAAT 07/18/22 07/18/22 07/18/22 12:00 14:21 15:03 WBC RBC Hgb Hct MCV MCH MCHC RDW Std Deviation RDW Coeff of Jared Plt Count MPV Immature Gran % (Auto) Neut % (Auto) Lymph % (Auto) Lyman % (Auto) Eos % (Auto) Baso % (Auto) Neut # (Auto) Lymph # (Auto) Lyman # (Auto) Eos # (Auto) Baso # (Auto) Immature Gran # (Auto) PT INR APTT PTT Ratio D-Dimer Sodium Potassium Chloride Carbon Dioxide Anion Gap BUN Creatinine Est Cr Clr Drug Dosing Est GFR ( Amer) Est GFR (Non-Af Amer) BUN/Creatinine Ratio Glucose Calcium Troponin I High Sens 4.7 Hepatitis C Ab (EIA) Pending Hep C Ab Signal/Cutoff Pending SARS-CoV-2, RNA, NAAT NEGATIVE Diagnostic Findings ECG personally reviewed: ECG 07/18/2022 at 11:02 a.m.: Sinus rhythm 67 beats per minute. Septal infarct. Echo 07/18/2022: Preliminary review demonstrated normal LV systolic function. No regional wall motion abnormalities. Formal review to follow. Chest x-ray 07/18/2022: No acute chest disease per Radiology. Medications Administered Current Inpatient Medications Acetaminophen (Acetaminophen 325 Mg Tab) 650 mg PO Q4H PRN PRN Reason: Pain or Fever Stop: 08/17/22 14:54 Aspirin (Aspirin 81 Mg Chew) 81 mg PO DAILY JESÚS Stop: 08/18/22 08:59 Atorvastatin Calcium (Atorvastatin 40 Mg Tab) 40 mg PO DAILY JESÚS Stop: 08/18/22 08:59 Morphine Sulfate (Morphine Sulfate 2 Mg/Ml Carp) 2 mg IV Q30M PRN PRN Reason: Chest Pain Stop: 08/01/22 14:54 Multivitamins (Multivitamin Tab) 1 tab PO QAM JESÚS Stop: 08/18/22 08:59 Multivitamins/Minerals (Cerovite Adv Formula Tab) 1 tab PO QAM JESÚS Stop: 08/18/22 08:59 Nitroglycerin (Nitroglycerin Sl 0.4 Mg/Tab Tab) 0.4 mg SL UD PRN PRN Reason: Chest Pain Stop: 08/17/22 14:54 Ondansetron HCl (Ondansetron Inj 2 Mg/Ml 2 Ml Vial) 4 mg IV Q6H PRN PRN Reason: Nausea Stop: 08/17/22 14:54 Polyethylene Glycol (Polyethylene (Miralax) 17 Gm Pack) 17 gm PO DAILY PRN PRN Reason: Constipation Stop: 08/17/22 14:54 Vitamin D (Cholecalciferol 1,000 Units 25 Mcg Tab) 2,000 units PO QAM JESÚS Stop: 08/18/22 08:59 PG Care Time/CCT Total # of Minutes Spent Total Time Spent with Patient: Total time spent is greater than 50% in coordination of care (as documented) at patient's floor/unit and/or counseling patient: Coding Level of Care Code 04414 Office/Outpt Visit, Est Diagnoses Chest pain R07.9 Coronary artery calcification I25.10; I25.84 Elevated BP without diagnosis of hypertension R03.0
[2022-07-18] MEDS ORDERED: NON-FORMULARY MEDICATION (Krill-Om-3-Dha-Epa-Phospho-Ast [Krill Oil] 1,000-170-50-80 mg Ca PO SCH (21:00)
--- NOTE | 2022-07-19 06:09 | Electrocardiogram Report ---
Test Reason : Blood Pressure : / mmHG Vent. Rate : 067 BPM Atrial Rate : 067 BPM P-R Int : 140 ms QRS Dur : 090 ms QT Int : 396 ms P-R-T Axes : 054 -36 024 degrees QTc Int : 418 ms Normal sinus rhythm Possible Left atrial enlargement Left axis deviation Low voltage QRS Septal infarct (cited on or before 23-SEP-2021) Abnormal ECG When compared with ECG of 23-SEP-2021 12:55, Criteria for Inferior infarct are no longer Present Questionable change in initial forces of Anteroseptal leads Confirmed by Mingo Salinas ([id number]) on 07/19/2022 6:09:25 AM Referred By: REFERRED SELF Confirmed By:Mingo Salinas
--- NOTE | 2022-07-19 08:38 | XCELERA ---
[id number]
[2022-07-19] MEDS ORDERED: ATORVASTATIN 40 MG TAB PO SCH (09:00)
[2022-07-19] MEDS ORDERED: CHOLECALCIFEROL 1,000 UNITS 25 MCG TAB PO SCH (09:00)
[2022-07-19] MEDS ORDERED: ASPIRIN 81 MG CHEW PO SCH (09:00)
[2022-07-19] MEDS ORDERED: MULTIVITAMIN TAB PO SCH (09:00)
[2022-07-19] MEDS ORDERED: CEROVITE ADV FORMULA TAB PO SCH (09:00)
--- NOTE | 2022-07-19 10:25 | Pre Anesthesia Assessment ---
Date of Service July 19, 2022 Pre Sedation Assessment Vital Signs Temp Pulse Pulse Resp BP BP Pulse Ox 07/19/22 10:09 37.0 C 18 143/68 H 99 07/19/22 08:15 36.8 C 65 18 135/63 97 07/19/22 07:30 07/19/22 07:04 61 07/19/22 04:00 36.5 C 63 18 110/68 96 07/18/22 22:15 50 L 07/18/22 22:59 36.7 C 71 18 112/64 95 07/18/22 19:10 36.8 C 69 20 128/73 93 07/18/22 16:23 61 07/18/22 15:19 07/18/22 14:57 36.8 C 62 16 163/71 H 98 07/18/22 14:43 60 17 162/87 H 99 07/18/22 13:38 61 17 07/18/22 13:00 57 L 12 99 07/18/22 13:00 160/72 H 07/18/22 12:30 58 L 14 99 07/18/22 12:30 150/69 H 07/18/22 12:00 56 L 15 97 07/18/22 12:00 137/60 07/18/22 11:30 67 14 98 07/18/22 11:30 166/66 H 07/18/22 11:07 61 12 98 07/18/22 10:56 36.5 C 68 18 153/67 H 98 O2 Del Method 07/19/22 10:09 Room Air 07/19/22 08:15 07/19/22 07:30 Room Air 07/19/22 07:04 07/19/22 04:00 Room Air 07/18/22 22:15 07/18/22 22:59 Room Air 07/18/22 19:10 Room Air 07/18/22 16:23 07/18/22 15:19 Room Air 07/18/22 14:57 Room Air 07/18/22 14:43 Room Air 07/18/22 13:38 07/18/22 13:00 07/18/22 13:00 07/18/22 12:30 07/18/22 12:30 07/18/22 12:00 07/18/22 12:00 07/18/22 11:30 07/18/22 11:30 07/18/22 11:07 07/18/22 10:56 Room Air Cardiovascular RRR, no murmur, no edema Respiratory normal respiratory effort, lungs clear to auscultation Pre-Sedation Airway Assessment Smoking Status: Never smoker Hx Sleep Apnea: No Short, Thick Neck: No Thyromental Distance: > or= 3.5 Finger Breadths Oral Cavity: + WNL Mallampati Class: II ASA: ASA3 NPO Status Date of Last Intake of Fluids: 07/19/22 Time of Last Intake of Fluids: 08:00 Last Oral Intake of Fluids Comment: sips with meds Date of Last Intake of Solid Food: 07/18/22 Time of Last Intake of Solid Foods: 17:00 Procedure Planning Contraindications for Sedation: none Current Medications Reviewed: Yes Notes The planned sedation has been discussed with the patient. Informed Consent was obtained. I have identified the patient, determined the appropriateness of sedation and have assessed the patient immediately prior to the procedure. All medicine(s) and interventions are by my order.
[2022-07-19] MEDS ORDERED: HEPARIN (PORCINE) 1000 UNIT/ML 10 ML (CATH LAB USE ONLY) ONE (10:32)
[2022-07-19] MEDS ORDERED: niCARdipine HCL INJ 2.5 MG/ML 10 ML AMP ONE (10:32)
[2022-07-19] MEDS ORDERED: fentaNYL citrate 100 MCG/2 ML VIAL ONE (10:32)
[2022-07-19] MEDS ORDERED: MIDAZOLAM HCL 1 MG/ML 2ML VIAL ONE (10:32)
[2022-07-19] MEDS ORDERED: NITROGLYCERIN/D5W 100MCG/ML 20ML SYR ONE (10:33)
--- NOTE | 2022-07-19 10:35 | Cardiology Progress Note ---
Date of Service July 19, 2022 Assessment & Plan (1) Chest pain: Plan: -exertional symptoms are classic for angina pectoris. -patient agrees with the need for a cardiac catheterization. -she was placed on the schedule for today. (2) Coronary artery calcification: Plan: -noted on his CT scan performed July 2021. -continue atorvastatin and aspirin. (3) Elevated BP without diagnosis of hypertension: Plan: -continue to monitor. Admission and Anticipated Discharge Date Admission Date: July 18, 2022 Subjective The patient is resting comfortably in bed without complaints of chest pain or dyspnea. We have discussed need for a cardiac catheterization. The patient is anxious to have this done this morning. Physical Exam Physical Exam: In general this is a well-developed well-nourished white female in no acute distress. HEENT exam is negative. Neck is supple with full carotid upstrokes. There are no carotid bruits. Jugular venous pressure is flat at 90. There is no thyromegaly. Cardiovascular exam reveals a regular rhythm with a normal S1 and S2. No S3, S4, or murmurs are noted. Lungs are clear without rales, rhonchi, or wheezes. Abdomen is soft and nontender without bruits. Extremities reveal intact radial artery and posterior tibial pulses bilaterally. There is no peripheral edema. 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 PG Care Time/CCT Total # of Minutes Spent Total Time Spent with Patient: Total time spent is greater than 50% in coordination of care (as documented) at patient's floor/unit and/or counseling patient: Coding Level of Care Code 29131 Subseq Hosp Care Lvl 3 Diagnoses Chest pain R07.9 Coronary artery calcification I25.10; I25.84 Elevated BP without diagnosis of hypertension R03.0
--- NOTE | 2022-07-19 11:37 | Post Operative Brief Note ---
Cardiology Brief Post Op Date of Surgery July 19, 2022 Pre & Post Diagnosis Operation Date: 07/19/22 10:30 <No data on this case meets the specified criteria> Procedure Cardiac cath: Severe mRCA CAD with left to right collaterals. Full report to follow. Bingo Cashier Mingo Salinas MD Senior Court Office Assistant Foreclosure Home Inspector Estimated Blood Loss 15 Findings See Below Complications none Disposition Disposition: PCU
--- NOTE | 2022-07-19 11:44 | Post Anesthesia Assessment ---
Date of Service July 19, 2022 Post Sedation Assessment Vital Signs Temp Pulse Pulse Resp BP BP Pulse Ox 07/19/22 11:28 68 16 137/65 98 07/19/22 11:38 68 16 137/65 98 07/19/22 10:09 37.0 C 18 143/68 H 99 07/19/22 08:15 36.8 C 65 18 135/63 97 07/19/22 07:30 07/19/22 07:04 61 07/19/22 04:00 36.5 C 63 18 110/68 96 07/18/22 22:15 50 L 07/18/22 22:59 36.7 C 71 18 112/64 95 07/18/22 19:10 36.8 C 69 20 128/73 93 07/18/22 16:23 61 07/18/22 15:19 07/18/22 14:57 36.8 C 62 16 163/71 H 98 07/18/22 14:43 60 17 162/87 H 99 07/18/22 13:38 61 17 07/18/22 13:00 57 L 12 99 07/18/22 13:00 160/72 H 07/18/22 12:30 58 L 14 99 07/18/22 12:30 150/69 H 07/18/22 12:00 56 L 15 97 07/18/22 12:00 137/60 O2 Del Method 07/19/22 11:28 Room Air 07/19/22 11:38 Room Air 07/19/22 10:09 Room Air 07/19/22 08:15 07/19/22 07:30 Room Air 07/19/22 07:04 07/19/22 04:00 Room Air 07/18/22 22:15 07/18/22 22:59 Room Air 07/18/22 19:10 Room Air 07/18/22 16:23 07/18/22 15:19 Room Air 07/18/22 14:57 Room Air 07/18/22 14:43 Room Air 07/18/22 13:38 07/18/22 13:00 07/18/22 13:00 07/18/22 12:30 07/18/22 12:30 07/18/22 12:00 07/18/22 12:00 Recovery Score Activity: Moves 4 extremities Respiration: Deep Breath/Cough Circulation: +/-20% PreAnes Value Consciousness: Fully Awake Oxygen Saturation: > 92% On Room Air Post Anesthesia Score: 10 Discharge Sedation Level of Care: Fast Track Phase II Post Sedation Plan On clinical assessment, the patient appears to have tolerated the sedation without complications. Patient is recovering as anticipated. Patient will continue to be monitored by nursing and may be discharged when sedation discharge criteria are met per below protocol. Upon Completions of procedure up to 15 minutes continue every 5 minute vital signs and the P.A.R. score; then discharge to a Phase I or Fast Track to Phase II per the following guidelines: * Discharge Patient to appropriate Phase II area if PAR is 8 or greater or return to pre- procedure baseline. The post - procedure orders will be as directed. * If PAR score is less than 8 or not return to pre-procedure baseline then patient will follow Phase I monitoring till PAR is reached for Phase II. The Phase I may be done in procedure room or may call to secure a Phase I area. * If naloxone or flumazenil are used for reversal, hold in Phase I for continued monitoring from when last reversal dose was given for a minimum of 60 minutes or longer pending the nurse and/or physician discretion of patient condition before discharge to Phase II. Please call the Sedation Physician to re-evaluate and complete post-note for discharge to Phase II area. Do NOT discharge from procedure sedation or Phase 1 until post- sedation evaluation note is complete by procedure /sedation MD Sedation Discharge Instructions to be given to the patient at discharge to home.
[2022-07-19] MEDS ORDERED: SODIUM CHLORIDE 0.9% 1000ML 1,000 ML IV SCH (11:45)
--- NOTE | 2022-07-19 11:51 | Cardiac Catheterization ---
[facility] Data: Podiatric Physician Cardiac Status Clinical evaluation leading to the procedure CAD Presenation: Stable angina Anginal Classification: CCS III Heart Failure: No Cardiogenic Shock within 24 Hours: No Cardiac Arrest within 24 Hours: No Imaging Studies Past 6 Months: Yes Stress Studies Past 6 Months: No Coronary Anatomy Dominant: Right Diagnostic Physicians Name: Mingo Salinas MD Status: Elective Closure Device Percutaneous Entry Location: Radial Closure Device: Radial Band Recommendations: Medical Therapy and/or Counseling Cardiac Cath Procedure Full Procedure Date July 19, 2022 Pre-Procedure Diagnosis Pre-Procedure Diagnosis: Angina AUC Score AUC Score: 7 Post-Procedure Diagnosis Post-Procedure Diagnosis: Severe CAD and Normal Intracardiac Pressures Procedure(s) Performed Procedure(s) Performed: Coronary Angiography and Left Heart Cath Marketing Liaison Mingo Salinas MD Coat Presser(s) Refractory Products Supervisor Estimated Blood Loss Estimated Blood Loss: < 20 ml Medication(s) Medication(s): Fentanyl, Heparin, Lidocaine 1%, Nicardipine and Versed Summary of Findings Procedures: 1. Coronary angiography 2. Left heart catheterization 3. Moderate sedation Indication: 72-year-old female with a history significant for coronary artery calcifications and dyslipidemia who presented with recent onset angina on exertion. She was referred for cardiac catheterization. Coronary angiography: 1. Calcifications noted within the proximal to mid RCA and proximal left system. 2. Left main: Luminal irregularities distal LM. 3. Left anterior descending: Mid LAD 40 to 50%, involving bifurcation of D1 and followed by ectatic segment. D1 and D2 without significant CAD. LAD does not extend to the apex. CAS-3 flow. 4. Circumflex: Circumflex and OM1 without significant CAD. 5. Right coronary artery: RCA is large and dominant. Proximal RCA 40-50%. Mid RCA complex appearing stenosis/subtotal occlusion with calcium burden. Distal vessel fills with CAS II flow. Distal RCA 30%. PDA and PL without significant CAD. There is also filling via left to right collaterals. Left heart catheterization: 1. Left ventriculography was not performed. 2. LVEDP 5 mmHg. 3. No aortic stenosis. Moderate sedation: 1. Sedation start time: 10:52 AM 2. Sedation end time: 11:27 AM Impression: 1. Severe mid RCA CAD with [id number] collaterals. 2. Otherwise, moderate nonobstructive CAD. 3. Low left-sided filling pressure. 4. No aortic stenosis. Plan: 1. Recommend medical therapy given complex appearing mid RCA stenosis with calcifications and left to right collaterals. Images reviewed with interventional cardiology as well. 2. Initiate beta bunny and nitrate therapy. 3. Aspirin 81 daily. 4. Continue high intensity statin therapy. 5. Will update primary hospitalist service. 6. Dr. Constantino, her primary banana expert, was updated on Findings and plan. 7. Offered on multiple occasions to contact patient's to update him on findings and plan, however patient declines and prefers that she notifies her herself. Hemodynamics Rest Ao:: 145/63 Final Ao: 152/66 LV: 130/2/4 Recommendations Recommendations: Medical Therapy and/or Counseling Specimens Specimens: None Radiation Exposure (mGy) 279 mGy. Fluoro time 2.2 min. Contrast (mls) 25 ml Procedural Complication(s) None Disposition PCU I attest to the content of the Intraoperative Record and any orders documented therein. Any exceptions are noted below. [facility] Card Cath Procedure Codes Cardiac Catheterization Procedure 1: Cardiovascular Cath Procedures: 46380 Coronaries and LHC (+/-LV) Moderate Sedation Procedure 1: Sedation/Anesthesia: 02715 Mod Sedation by the same physician;Init15 Min Child Age 5 & Up Procedure 2: Sedation/Anesthesia: 80495 Mod Sedation by the same physician; Ea Jarad [id number] Minutes PG Care Time/CCT Total # of Minutes Spent Total Time Spent with Patient: Total time spent is greater than 50% in coordination of care (as documented) at patient's floor/unit and/or counseling patient:
[2022-07-19] MEDS ORDERED: ONDANSETRON 4 MG OD TAB PO PRN (12:12)
[2022-07-19] MEDS ORDERED: METOPROLOL TARTRATE 25 MG TAB PO SCH (12:30)
[2022-07-19] MEDS ORDERED: ISOSORBIDE MONO EXTENDED REL 30 MG TABCR PO ONE (12:30)
--- NOTE | 2022-07-19 14:18 | Discharge Summary ---
Date of Service July 19, 2022 Admission HPI Per Admitting Provider Verónica Cassidy is a 72 y/o female with past medical history significant for hypercholesterolemia, osteopenia, insufficiency, carotid artery stenosis, and fatty liver disease who presents today with chest pain. Patient states she and her are doing the usual walk around the neighborhood this morning which includes hills. She noticed that she started to move up the hill that she got a left-sided crushing chest pressure. Upon resting and returning home, the pain subsided prior to evaluation, however she did call her PCP who advised her to present to the ED for further evaluation. She notes that she has difficult time catching her breath when his chest pain is present, otherwise has not felt short of breath, notes palpitations, dizziness, lightheadedness, or radiation of pain to back/shoulder/neck/arm/jaw. She has had this chest pain approximately 4 times over the last 2 weeks, it only comes on when she goes up hills. As stated, today patient returned home and her chest pain did alleviate prior to presentation, however on previous occasion she had continued exercising through the pain but notes did become more severe as she continued up the hill. Currently she reports pain is 0/10. She received full dose of aspirin in the ED. Patient was previously by cardiology in 1 year ago due to episodes of nocturnal dyspnea. An EKG noted sinus rhythm with left axis poor R wave progression, revealed atelectasis. She underwent chest CT which showed moderate coronary calcifications as well as calcifications of aorta. An echo was done in July which noted normal left ventricular systolic function with an EF of 60-65%. There is mild LVH with evidence of diastolic dysfunction but no valvular pathology and unchanged from a study performed August 2016. She is also had an intermittent LBBB since August 2016 but a dobutamine stress echo at that time did not show evidence of ischemia. In ED, her vital signs are within normal limits and stable. Labs are all unremarkable, troponin 4.4. CXR unremarkable. EKG without ST segment or T wave changes. Principal Diagnosis Crescendo angina, ischemic heart disease Discharge Exam General-alert and oriented x3, no fevers, no chills HEENT-head atraumatic and normocephalic, pupils equal and reactive to light, extraocular muscles intact Neck-no lymphadenopathy or thyromegaly, trachea midline Chest-clear to auscultation percussion. No rales wheezing or rhonchi Cardiac-regular rate and rhythm, normal S1 and S2, no murmurs Abdomen-normal bowel sounds, nontender, no hepatosplenomegaly Extremities-no cyanosis, clubbing, or edema. No bleeding at right wrist cath site with pressure bandage in place Neuro-cranial nerves II through XII intact, motor and sensory function within normal limits, strength symmetrical , no focal deficits Psych-normal affect, normal mood Discharge Data Allergies Allergy/AdvReac Type Severity Reaction Status Date / Time ibuprofen Allergy Intermediate rash/hives Verified 06/28/22 15:31 Iodinated Contrast Media Allergy Intermediate extreme Verified 06/28/22 15:31 headache/vomiting lasts for days Penicillins Allergy Intermediate swelling Verified 06/28/22 15:31 in face/neck, "sunburn" red HAIR DYE Allergy Mild ITCHINESS Uncoded 06/28/22 15:31 with scalp Consultations 07/18/22 13:46 ED Decision to Admit Stat 07/18/22 14:55 Consult Cardiology Routine Procedures Performed Operation Date: 07/19/22 10:30 Actual Procedures p Cath, Left with Cors and Vent - Mingo Salinas MD s Cineradiography w/Routine Exam - Mingo Salinas MD Ordered Studies 07/19/22 10:00 CL Cath Imgs for PACS use only Routine Hospital Course (1) Chest pain: This appears to be due to crescendo angina. She underwent cardiac catheterization today, July 19, and was found to have a subtotal mid right coronary lesion with collaterals. The patient and cardiology have opted for med management. She will be provided with a prescription for sublingual nitroglycerin to use as needed for recurrent chest discomfort. She will go home later today, July 19, after she completes the postcardiac cath protocol (2) Fatty liver disease, nonalcoholic: - Chronic, stable. No acute needs. - LFTs wnl. - Continue to avoid alcohol encourage weight loss. - Follows with GI, last seen in March. (3) Hypercholesterolemia: - Continue statin. - Lipids 01/10: TRG 235, cholesterol 185, LDL 84, VLDL 47, HDl 54. (4) Carotid atherosclerosis: - 50% stenosis b/l, not on aspirin due to allergic reaction to ibuprofen 15 years ago--hives, palms/soles became itchy. - Tolerated full dose ASA in ED without side effects. (5) Vitamin D deficiency disease: - Continue Vit D supplementation. Plan Will discharge home later today, July 19, with medical management. Use sublingual nitroglycerin as needed for any recurrent chest pain. Follow-up with cardiology, Dr. Constantino, in 1 week Total Time Total Time Spent Total Time Spent (In Minutes): 35 minutes Discharge Plan Discharge Items Patient Disposition: Home - Self-Care Reason For Visit: CHEST PAIN Discharge Diagnosis: Crescendo angina, ischemic heart disease Activity: Resume your previous activity Non-emergency contact: Primary Care Provider and Production Welding Supervisor Call non-emergency contact if: you have any medication questions and your symptoms worsen Follow-up/Referrals: Fuad Lovell MD [Primary Care Provider] - Diet: Heart Healthy Addtl Attending Provider Instructions: ACTIVITY RECOMMENDATIONS: Excess manipulation of the wrist should be avoided for the next 24-48 hours. * No lifting over 2 pounds (approximately a 1/2 gallon of milk) with the utilized arm for 24 hours. * No strenuous activity such as bowling or tennis for 3 days. * Keep the site of the procedure covered with a bandage for 24 hours. *You may shower the day after the procedure. Do not take a tub bath or submerge the puncture site in water for the next 3 days. *Do not operate any motorized equipment for 3 days. SPECIAL CARE INSTRUCTIONS: The site may be slightly bruised and sore following your procedure. Should any of the following occur, contact the Dr. who performed your procedure. 1. Redness/inflammation, swelling, chills, or fever, or colored drainage at procedure site within 3-7 days after your procedure. 2. Coldness, discoloration, ongoing numbness, severe pain, or swelling. Expect mild tingling of hand and tenderness at the puncture site for up to three days. If this persists beyond three days, or other symptoms develop, notify the Dr. who performed your procedure. BLEEDING: If the procedure site on your wrist begins to bleed, do not panic 1. Place 1 or 2 fingers firmly just slightly above the insertion site to stop the bleeding. You may be able to feel your pulse as you hold pressure. 2. Lift your finger after 5 minutes to see if the bleeding has stopped. 3. Once the bleeding has stopped, gently wipe the wrist area clean with a bandage. * If the bleeding from your wrist does not stop after 10 minutes, or if there is a large amount of bleeding or spurting, call 911 (do not drive yourself to the hospital). SKIN IRRITATION: * You may experience some redness and/or swelling in the area where radiation was administered. If any skin irritation occurs, please contact your family physician. FOLLOW UP VISIT: Keep any scheduled doctor appointments. Pending Studies at Discharge: No Stand-Alone Forms: My [facility], Smoking Cessation Medications and DC Order Prescriptions: New atorvastatin 40 mg Tablet 80 mg PO DAILY Qty: 30 0RF isosorbide mononitrate 30 mg Tablet Extended Release 24 Hr 30 mg PO QAM Qty: 30 0RF nitroglycerin [Nitrostat] 0.4 mg Tablet, Sublingual 0.4 mg sublingual UD PRN (Reason: chest pain) Qty: 25 0RF aspirin [Children's Aspirin] 81 mg Tablet,Chewable 81 mg PO DAILY Qty: 30 0RF metoprolol tartrate 25 mg Tablet 25 mg PO BID Qty: 60 0RF Continued cholecalciferol (vitamin D3) [Vitamin D3] 25 mcg (1,000 unit) tablet 2,000 unit PO QAM multivitamin Tablet 1 tab PO QAM lutein-zeaxanthin [Ocuvite Lutein 25] 25-5 mg Capsule 1 cap PO QAM altgs-br-6-sjq-alu-hqczabf-ast [krill oil] [id number] mg Capsule 1 cap PO QPM ondansetron 4 mg tablet,disintegrating 4 mg PO Q8H PRN (Reason: nausea and vomiting) Qty: 30 0RF Rx Instructions: pt has, never used. Discontinued atorvastatin 40 mg tablet 40 mg PO DAILY Qty: 90 3RF Discharge Orders: Discharge Order (Routine); Ordered 07/19/22 Ordered By: El Lorenzo Admission Data Admit Date/Time: 07/18/22 14:01 Attending Provider: El Lorenzo Admit Provider: Brooke Hoang Primary Care Provider: Fuad Lovell V. Other Providers: Brooke Hoang ; Jesus Constantino Coding Level of Care Code D/C DAY MANAGEMENT >30 MINS Diagnoses Chest pain R07.9 Fatty liver disease, nonalcoholic K76.0 Hypercholesterolemia E78.00 Carotid atherosclerosis I65.29 Vitamin D deficiency disease E55.9
--- NOTE | 2022-07-19 22:39 | Electrocardiogram Report ---
Test Reason : Blood Pressure : / mmHG Vent. Rate : 069 BPM Atrial Rate : 069 BPM P-R Int : 148 ms QRS Dur : 094 ms QT Int : 404 ms P-R-T Axes : 055 -27 025 degrees QTc Int : 432 ms Normal sinus rhythm Possible Left atrial enlargement Low voltage QRS Cannot rule out Anteroseptal infarct (cited on or before 23-SEP-2021) Abnormal ECG When compared with ECG of 18-JUL-2022 11:02, No significant change Confirmed by Mingo Salinas ([id number]) on 07/19/2022 10:39:24 PM Referred By: REFERRED SELF Confirmed By:Mingo Salinas
--- NOTE | 2022-07-20 05:48 | Electrocardiogram Report ---
Test Reason : Blood Pressure : / mmHG Vent. Rate : 060 BPM Atrial Rate : 060 BPM P-R Int : 158 ms QRS Dur : 094 ms QT Int : 422 ms P-R-T Axes : 066 -31 045 degrees QTc Int : 422 ms Normal sinus rhythm Left axis deviation Abnormal ECG When compared with ECG of 18-JUL-2022 18:36, Minimal criteria for Anteroseptal infarct are no longer Present Nonspecific T wave abnormality no longer evident in Anterior leads Confirmed by Mingo Salinas ([id number]) on 07/20/2022 5:48:24 AM Referred By: REFERRED SELF Confirmed By:Mingo Salinas
--- NOTE | 2022-07-20 06:04 | Electrocardiogram Report ---
Test Reason : Blood Pressure : / mmHG Vent. Rate : 075 BPM Atrial Rate : 075 BPM P-R Int : 148 ms QRS Dur : 086 ms QT Int : 388 ms P-R-T Axes : 059 -10 021 degrees QTc Int : 433 ms Normal sinus rhythm Possible Left atrial enlargement Low voltage QRS Poor R wave progression, consider anterior IN vs. lead placement vs. LVH Abnormal ECG When compared with ECG of 19-JUL-2022 06:05, No significant change Confirmed by Mingo Salinas ([id number]) on 07/20/2022 6:04:30 AM Referred By: REFERRED SELF Confirmed By:Mingo Salinas
[2022-07-20] MEDS ORDERED: ISOSORBIDE MONO EXTENDED REL 30 MG TABCR PO SCH (09:00)
[2022-07-20] MEDS ORDERED: ATORVASTATIN 40 MG TAB PO SCH (09:00)
== END 2022-07-19 17:00 | disposition home or self-care (01) ==
LOC: 2N 10:50 → ED 10:50 → SUATTDRO 14:01 → 2N 14:43 → 2S 07-19 11:20